=== PATIENT | female | born 1950 | race American Indian/Alaskan Native ===

== ENCOUNTER 2021-04-30 11:05 | Outpatient (CLI) | payer MEDICARE ==
--- NOTE | 2021-05-14 08:20 | Mammography Report ---
DIGITAL SCREENING MAMMOGRAM WITH CAD, 04/30/2021 CLINICAL INFORMATION / INDICATION: Routine screening mammography. SCREENING WITH ALBINO TECHNIQUE: Digital bilateral 2D mammography was obtained in the craniocaudal and mediolateral obliqu e projections. This examination was interpreted with the benefit of Computer-Aided Detection analysis . COMPARISON: 10/04/2020 FINDINGS: Breast Density: There are scattered areas of fibroglandular density. No dominant mass, suspicious calcifications, or architectural distortion in either breast. Biopsy clip again seen on the left. Tiny nodule in the mid right breast is unchanged. IMPRESSION: No mammographic evidence of malignancy. Follow up recommendation: Routine yearly BI-RADS Category 2: Benign. A "normal" or negative report should not discourage follow up or biopsy of a clinically significant f inding. A written summary of these findings will be mailed to the patient. The patient will be entered into a mammography reporting system which will generate a reminder letter for the patient's next appointmen t at the appropriate interval. The [employer] recommends yearly mammograms starting at age 40 and continuing as l jayden as a woman is in good health. Breast MRI is recommended for women with an approximate 20-25% or greater lifetime risk of breast cancer, including women with a strong family history of breast or ova julio cesar cancer or who have been treated for Hodgkin's disease. Signer Name: Charlie Bustos MD Signed: 05/14/2021 8:15 AM Workstation Name: [id number]
== END 2021-04-30 11:06 | disposition home or self-care (01) ==
LOC: SPVWC 11:05
PROVIDERS: ATTEND Surgery
DX: Z12.31 Encounter for screening mammogram for malignant neoplasm of breast (principal)
CPT/HCPCS: 77063; 77067

== ENCOUNTER 2021-05-27 07:32 | Day surgery (SDC) | payer MEDICARE ==
[2021-05-21 12:32] LABS: Hematocrit 40.7 % (30.3-42.9); Hemoglobin 13.7 gm/dl (10.1-14.3); Mean Corpuscular HGB Conc 34 % (30-34); Mean Corpuscular Volume 92 fl (79-97); Platelet Count 236 K/mm3 (140-440); Red Blood Count 4.43 M/mm3 (3.65-5.03); Red Cell Distribution Width 16.9 % (13.2-15.2)
[~2021-05-27 07:32] MED LIST: ceFAZolin/STERILE WATER 2 GM/20 ML SYRINGE IV NR
[2021-05-27] MEDS ORDERED: LIDOCAINE (1%) 10 MG/1 ML VIAL 20 ML MDV ONE ×2 (07:51→10:45)
[2021-05-27] MEDS ORDERED: LACTATED RINGERS 1,000 ML IV SCH (08:30)
--- NOTE | 2021-05-27 09:34 | Anesthesia Day of Surgery ---
Anesthesia Day of Surgery - Day of Surgery Patient Examined: Yes Patient H&P Reviewed: Yes Patient is NPO: Yes Beta Blockers: Yes Cardiac Clearance: Yes
--- NOTE | 2021-05-27 09:39 | Anesthesia Consultation ---
Anesthesia Consult and Med Hx Date of service: 05/27/21 - Airway Anesthetic Teeth Evaluation: Caps ROM Head & Neck: Adequate Mental/Hyoid Distance: Adequate Mallampati Class: Class II Intubation Access Assessment: Good - Pre-Operative Health Status ASA Pre-Surgery Classification: ASA3 Proposed Anesthetic Plan: General - Pulmonary Hx Smoking: No Hx Respiratory Symptoms: Yes (DÍAZ) SOB: Yes Hx Sleep Apnea: No - Cardiovascular System Hx Hypertension: Yes Hx Coronary Artery Disease: Yes (Stents 01/2020 and 07/2020) Hx Heart Attack/AMI: Yes (NSTEMI-07/2020) Hx Percutaneous Transluminal Coronary Angioplasty (PTCA): Yes (+Cardiac clearance) - Central Nervous System 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
[2021-05-27] MEDS ORDERED: ONDANSETRON 4 MG/2 ML INJ IV PRN (09:40)
[2021-05-27] MEDS ORDERED: HYDROmorphone 1 MG/1 ML INJ IV PRN ×2 (09:40)
[2021-05-27] MEDS ORDERED: ACETAMINOPHEN 325 MG TAB PO ONE (10:00)
[2021-05-27] MEDS ORDERED: MIDAZOLAM 2 MG/2 ML INJ IV NR (10:00)
[2021-05-27] MEDS ORDERED: CELECOXIB 200 MG CAP PO NR (10:00)
[2021-05-27] MEDS ORDERED: MAGNESIUM OXIDE 400 MG TAB PO ONE (10:00)
[2021-05-27] MEDS ORDERED: LIDOCAINE MPF (2%) 20 MG/1 ML VIAL 5 ML ONE (10:37)
[2021-05-27] MEDS ORDERED: fentaNYL 100 MCG/2 ML INJ ONE (10:37)
[2021-05-27] MEDS ORDERED: propofoL 200 MG/20 ML VIAL IV ONE (10:38)
[2021-05-27] MEDS ORDERED: BUPIVACAINE/PF (0.25%) 2.5 MG/ML 30 ML VIAL INFILTRATI ONE ×3 (10:45→12:13)
[2021-05-27] MEDS ORDERED: LIDOCAINE (1%) 10 MG/1 ML VIAL 20 ML MDV INFILTRATI ONE ×2 (12:14)
--- NOTE | 2021-05-27 12:21 | Mammography Report ---
MAMMOGRAPHIC GUIDED LEFT BREAST NEEDLE LOCALIZATION, 05/27/2021 CLINICAL INFORMATION / INDICATION: LT BREAST MASS. COMPARISON: 04/30/2021 PROCEDURE: Risks, benefits and indications to the procedure were discussed with the patient. The patient agreed to proceed with both verbal and written consent. A timeout procedure was performed with 2 patient marina ntifiers. The breast was prepped with betadine in the usual sterile fashion. Approximately 5 cc of Lidocaine 1% was used for local anesthesia. Under direct digital mammographic guidance, a localization wire was p laced in satisfactory position with distal tip traversing the targeted lesion. Post-biopsy mammogram confirms satisfactory positioning of the localization wire. The wire was secured to the skin with a s terile dressing. The patient tolerated procedure without difficulty. No complications were encountered. IMPRESSION: 1. Satisfactory mammographic guided wire localization of the right breast. Signer Name: Harish Whitney Jr, MD Signed: 05/27/2021 12:17 PM Workstation Name: [id number]
--- NOTE | 2021-05-27 12:22 | Mammography Report ---
LEFT BREAST SPECIMEN RADIOGRAPH, 05/27/2021 INDICATION: Left breast target lesion: Left breast mass. COMPARISON: Needle localization performed earlier today FINDINGS: The previously localized target lesion is present in its entirety in the submitted specimen. The localization wire is present. IMPRESSION: 1. Radiographic evidence of satisfactory excision of the target lesion. Signer Name: Harish Whitney Jr, MD Signed: 05/27/2021 12:17 PM Workstation Name: [id number]
[2021-05-27] MEDS ORDERED: PHENYLEPHRINE/NS 1,000 MCG/10 ML SYRINGE (OR USE) IV ONE (12:23)
[2021-05-27] MEDS ORDERED: ONDANSETRON 4 MG/2 ML INJ ONE (12:23)
--- NOTE | 2021-05-27 12:37 | Short Stay Summary ---
Short Stay Documentation Date of service: 05/27/21 - History H&P: obtained from office - Allergies and Medications Current Medications: Allergies No Known Allergies Allergy (Verified 05/14/21 12:23) Home Medications Medication Instructions Recorded Confirmed Last Taken Type Aspirin [Adult Aspirin] 81 mg PO DAILY 05/14/21 05/14/21 05/20/21 History Bimatoprost [Lumigan 0.01%] 1 drop OP QPM 05/14/21 05/14/21 05/26/21 History Clopidogrel [Plavix] 75 mg PO QDAY 05/14/21 05/14/21 05/20/21 History Empagliflozin [Jardiance] 10 mg PO DAILY 05/14/21 05/14/21 05/26/21 History Ezetimibe/Simvastatin 1 each PO DAILY 05/14/21 05/14/21 05/26/21 History [Ezetimibe-Simvastatin 10-40 mg] Famotidine [Pepcid] 40 mg PO QHS 05/14/21 05/14/21 05/26/21 21:00 History Gabapentin [Neurontin] 600 mg PO TID 05/14/21 05/14/21 05/27/21 06:15 History Insulin Degludec [Tresiba] 20 unit SQ QHS 05/14/21 05/14/21 05/26/21 History Insulin Lispro [Humalog] 1 unit SQ PRN PRN 05/14/21 05/14/21 05/26/21 History Levothyroxine [Synthroid] 88 mcg PO QAM 05/14/21 05/14/21 05/27/21 06:15 History Potassium Chloride [K-Dur] 10 meq PO QDAY 05/14/21 05/14/21 05/26/21 History RX: Ranolazine [Ranolazine ER] 500 mg PO BID 05/14/21 05/14/21 05/26/21 History Semaglutide [Ozempic] 1 unit SQ 1XW 05/14/21 05/14/21 05/26/21 History carvediloL [Coreg] 12.5 mg PO BID 05/14/21 05/14/21 05/27/21 06:15 History methOCARBAMOL [Robaxin TAB] 500 mg PO Q6H PRN 05/14/21 05/14/21 05/26/21 History traMADoL [Ultram] 50 mg PO Q6HR PRN 05/14/21 05/14/21 05/26/21 History RX: Ibuprofen [Motrin 800 MG tab] 800 mg PO Q8HR PRN #10 tablet 05/27/21 Unknown Rx Active Medications Cefazolin Sodium (Cefazolin/Sterile Water 2 Gm/20 Ml Syringe) 2 gm IV PREOP NR Stop: 05/27/21 20:00 Celecoxib (Celecoxib 200 Mg Cap) 200 mg PO PREOP NR Stop: 05/27/21 23:59 Last Admin: 05/27/21 09:50 Dose: 200 mg Documented by: Hydromorphone HCl (Hydromorphone 1 Mg/1 Ml Inj) 0.25 mg IV Q10MIN PRN PRN Reason: Pain, Moderate (4-6) Hydromorphone HCl (Hydromorphone 1 Mg/1 Ml Inj) 0.5 mg IV Q10MIN PRN PRN Reason: Pain , Severe (7-10) Lactated Ringer's (Lactated Ringers) 1,000 mls @ 100 mls/hr IV DIRECT DAWOOD Last Admin: 05/27/21 09:19 Dose: 100 mls/hr Documented by: Midazolam HCl (Midazolam 2 Mg/2 Ml Inj) 2 mg IV PREOP NR Stop: 05/27/21 23:59 Last Admin: 05/27/21 10:00 Dose: 2 mg Documented by: Ondansetron HCl (Ondansetron 4 Mg/2 Ml Inj) 4 mg IV ONCE PRN PRN Reason: Nausea And Vomiting - Brief post op/procedure progress note Date of procedure: 05/27/21 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 Post-op diagnosis: same Procedure: Left breast mass needle localization excisional biopsy Anesthesia: GETA Findings: wire and clip present Surgeon: DERRICK LUNA Estimated blood loss: minimal Pathology: list Specimen disposition: to lab Condition: stable - Disposition Condition at discharge: Good Disposition: DC-01 TO HOME OR SELFCARE Short Stay Discharge Plan Activity: other (no heavy lifting) Diet: regular Wound: keep clean and dry (wear breast binder; may shower in 48 hours; no baths, pools or lakes) Follow up with: DERRICK LUNA MD [Staff Physician] - 7 Days Prescriptions: RX: Ibuprofen [Motrin 800 MG tab] 800 mg PO Q8HR PRN #10 tablet PRN Reason: Pain , Severe (7-10)
--- NOTE | 2021-05-27 12:40 | Operative Report ---
Operative Report Operative Report: Operative Report: May 27, 2021 Preoperative diagnosis: Left breast mass of the upper outer/central quadrant Postoperative diagnosis: Same Procedure: Left needle localization breast mass excisional biopsy of the upper outer/central quadrant Surgeon: Connie Crews MD Anesthesia: General Findings: Left wire and clip present within radiograph specimen Complications: None EBL: Minimal (less than 25 cc) Disposition: PACU in good condition Indications for operative procedure: This is a 70 year old lady with recent abnormal screening and diagnostic [place] with biopsy performed of lesion of the upper outer quadrant/central breast with findings of a papillary lesion. Recommendations are to proceed with left breast mass excisional biopsy to rule out malignancy. She wished to proceed with the above procedure. Procedure in detail: The patient was taken to radiology for wire placement for localization known area of concern. Patient was then taken to the operating room. Gen. anesthesia was administered. Left breast and axilla were prepped and draped in the normal sterile operative fashion. The wire was identified of the upper outer/central quadrant. Timeout was performed. Attention was then taken towards the left breast. A periareolar breast incision was made around the 2:00 position with a 15 blade knife and dissection taken down to subcutaneous tissues. First began raising of the superior flap with removal of the wire from the skin with dissection take down posteriorly past the wire, followed by raising of the inferior flap, medial flap and lateral flap with all flaps taken down posteriorly past the wire. The breast area of concern was appropriately removed posteriorly with the aid of the Bovie cautery. The wire was not encountered. Specimen was marked and then sent to pathology and radiology; radiograph specimen with wire and clip present. Breast cavity was irrigated and hemostasis was obtained. The posterior deep breast tissues were approximated and closed using interrupted 3-0 Vicryl. The subcutaneous tissues were approximated and closed using interrupted 3-0 Vicryl followed by closing of the skin with a running 4-0 Monocryl and skin affix. The patient tolerated surgery very well and she was awaken from anesthesia without any complication and transported to PACU in good condition.
[2021-05-27 13:26] VITALS: BP 146/72
--- NOTE | 2021-05-27 20:05 | Post Anesthesia Evaluation ---
- Post Anesthesia Evaluation Patient Participated: Yes Airway Patent: Yes Stable Respiratory Function: Yes Nausea/Vomiting: No Temp > 96.8F: Yes Pain Manageable: Yes Adequeate Hydration: Yes Anesthesia Complications: No Block Receding Appropriately: Not Applicable Patient on Ventilator: No
== END 2021-05-27 13:45 | disposition home or self-care (01) ==
LOC: OR 07:32
PROVIDERS: ATTEND Surgery
DX: N63.21 Unspecified lump in the left breast, upper outer quadrant (principal); R92.8 Other abnormal and inconclusive findings on diagnostic imaging of breast; Z20.822 Contact with and (suspected) exposure to COVID-19; I25.10 Atherosclerotic heart disease of native coronary artery without angina pectoris; E78.00 Pure hypercholesterolemia, unspecified; I10 Essential (primary) hypertension; K21.9 Gastro-esophageal reflux disease without esophagitis; E66.9 Obesity, unspecified; M19.90 Unspecified osteoarthritis, unspecified site; E11.9 Type 2 diabetes mellitus without complications; E89.0 Postprocedural hypothyroidism; Z79.899 Other long term (current) drug therapy; Z79.4 Long term (current) use of insulin; Z79.82 Long term (current) use of aspirin; Z98.41 Cataract extraction status, right eye; Z98.42 Cataract extraction status, left eye; Z90.710 Acquired absence of both cervix and uterus; Z98.891 History of uterine scar from previous surgery; Z87.442 Personal history of urinary calculi; Z98.890 Other specified postprocedural states; Z68.37 Body mass index [BMI] 37.0-37.9, adult
CPT/HCPCS: 19125; 19281; 36415; 76098; 82962; 85027; 88307; A4648; J0690; J2250; J2370; J2405; J2704; J3010; J7120; U0003